=== PATIENT | female | born 1965 | race Caucasian/White ===

== ENCOUNTER 2018-03-28 12:48 | Observation (INO) | END 2018-03-30 14:05 | disposition home or self-care (01) ==

== ENCOUNTER 2018-10-03 14:00 | Emergency (ER) | payer OTHER ==
[~2018-10-03] VITALS: Ht 152.4 cm; Wt 55.9 kg
[~2018-10-03 14:00] MED LIST: ERGO2000 PO; LEVO100T82 PO; PARO-2 PO
[2018-10-03 14:09] VITALS: Ht 152.4 cm; Wt 55.9 kg
--- NOTE | 2018-10-03 15:51 | ERD ---
ER Documentation Chief Complaint Chief Complaint SENT BY CHEMO NURSE FOR EVAL LEFT CHEST PORT. BLOODY-YELLOW DRAINAGE TODAY HPI 53-year-old female with past medical history of breast cancer presenting to the emergency department complaining of redness and discharge surrounding her chemotherapy Port-A-Cath in the left chest for the past 2 days. She also reports pain to her right antecubital region for the past week which is worse with movement after having IV placed here. Symptoms are moderate in severity and intermittent. Patient denies any fevers, chills, chest pain, or other symptoms at this time. ROS All systems reviewed and are negative except as per history of present illness. Medications Home Meds Active Scripts Cephalexin* (Keflex*) 500 Mg Capsule, 500 MG PO QID for 5 Days, CAP Prov:CAROLINA NOGUERA PA-C 10/03/18 Reported Medications Ergocalciferol (Vitamin D2) (VITAMIN D2) 2,000 Unit Tablet, 2000 UNIT PO DAILY, TAB 03/28/18 Paroxetine Hcl* (Paxil*) 20 Mg Tablet, 20 MG PO DAILY, TAB 03/28/18 Levothyroxine Sodium* (Levoxyl*) 100 Mcg Tablet, 100 MCG PO BEFORE BREAKFAST, #30 TAB 03/28/18 Allergies Allergies: Coded Allergies: ciprofloxacin (Verified Allergy, Unknown, 03/28/18) PMhx/Soc History of Surgery: Yes (bilateral tubal ligation) Anesthesia Reaction: No Hx Neurological Disorder: No Hx Respiratory Disorders: No Hx Cardiac Disorders: No Hx Psychiatric Problems: No Hx Miscellaneous Medical Probl: No Hx Alcohol Use: No Hx Substance Use: No Hx Tobacco Use: No FmHx Family History: No diabetes Physical Exam Vitals Temperature 98.3 F, pulse 76 bpm, respiratory rate 20 bpm, blood pressure 114/79, pulse oximetry 98% on room air. Physical Exam Const: No acute distress Head: Atraumatic Eyes: Normal Conjunctiva ENT: Normal External Ears, Nose and Mouth. Neck: Full range of motion. No meningismus. Resp: Clear to auscultation bilaterally Cardio: Regular rate and rhythm, no murmurs Abd: Soft, non tender, non distended. Normal bowel sounds Skin: Mild erythema surrounding Port-A-Cath to the left chest. No discharge. No lymphatic streaking. No necrosis. Back: No midline or flank tenderness Ext: No cyanosis, or edema. Subjective tenderness to palpation of the antecubital region of the right upper extremity. There is no lymphatic streaking. No erythema. Patient is neurovascularly intact distally. 2+ radial pulses of the right upper extremity. Neur: Awake and alert Psych: Normal Mood and Affect Procedures/MDM 53-year-old female presented to the emergency department complaining of redness surrounding Port-A-Cath of her left chest as well as well as pain to the right antecubital region after IV line was established here. Ultrasound of the right upper extremity showed no evidence of DVT and interpreted by radiologist. Symptoms are likely secondary to superficial thrombophlebitis of the RUE or other nonemergent cause. Patient will also be treated for probable cellulitis of the left chest wall. No evidence of sepsis or other emergencies. Patient stable and appropriate for discharge and further outpatient management with prescriptions. No evidence of life-threatening pathology at time of discharge. Pt/family in agreement with discharge plan/diagnosis. Pt/family advised to return immediately with any new or worsening symptoms. Follow-up with primary care physician within the next 1-2 days. Departure Diagnosis: Primary Impression: Cellulitis Additional Impression: Superficial thrombophlebitis Condition: Fair Additional Instructions: Follow up with your PCP within the next 1-3 days for a repeat evaluation. If you require a referral to a specialist, your Primary Care Provider may be able to provide this for you. In most patient cases, a referral is not required. If you have further questions regarding this matter, please ask your Primary Care Provider. Return the the emergency department immediately if symptoms worsen or change. If you have any questions regarding medications, ask your pharmacist or us before you leave. If any adverse reactions, occur while taking your medications, discontinue the treatment and return to the emergency department immediately. If any new or worsening symptoms, uncontrolled fevers, or other unexplained symptoms occur, return to the emergency department immediately. Take your medications as directed, and complete the entire course of treatment. CAROLINA NOGUERA PA-C Oct 03, 2018 15:51
[2018-10-03] MEDS ORDERED: CEPH-443 PO (16:46)
== END 2018-10-03 17:08 | disposition home or self-care (01) ==
LOC: FTE 14:00
DX: L03.113 Cellulitis of right upper limb (principal); Z85.3 Personal history of malignant neoplasm of breast
CPT/HCPCS: 93971; Z7502